=== PATIENT | male | born 1970 | race African-American/Black ===

== ENCOUNTER 2019-12-02 17:36 | Inpatient (IN) | payer OTHER ==
[2019-12-02 20:34] VITALS: BMI 30.2
--- NOTE | 2019-12-02 22:43 | HP ---
CIWA Score Nausea/Vomitin (vomiting x 2) Muscle Tremors: 4-Moderate,w/Arms Extend Anxiety: 3 Agitation: 0-Normal Activity Paroxysmal Sweats: 3 Orientation: 1-Uncertain about Date Tacttile Disturbances: 0-None Auditory Disturbances: 0-None Visual Disturbances: 0-None Headache: 3-Moderate CIWA-Ar Total Score: 16 - Admission Criteria OASAS Guidelines: Admission for Medically Managed Detox: Requires at least one of the followin. CIWA greater than 12 2. Seizures within the past 24 hours 3. Delirium tremens within the past 24 hours 4. Hallucinations within the past 24 hours 5. Acute intervention needed for co occurring medical disorder 6. Acute intervention needed for co occurring psychiatric disorder 7. Severe withdrawal that cannot be handled at a lower level of care (continued vomiting, continued diarrhea, abnormal vital signs) requiring intravenous medication and/or fluids 8. Admission ROS [facility] Chief Complaint: Alcohol withdrawal symptoms Allergies/Adverse Reactions: Allergies Allergy/AdvReac Type Severity Reaction Status Date / Time No Known Allergies Allergy Verified 12/02/19 20:22 History of Present Illness: 49 years old male with a long history of alcohol dependence is seeking admission to detox. Patient has been in previous detox and reports reports four years of sobriety while incarcerated. He has medical history of asthma and denies psychiatric history. Patient denies suicide attempt and suicidal ideation at this time. Patient reports that he is homeless and resides in [facility] in [place]. He reports blackouts from drinking, last blackout was on 11/29/2019. Exam Limitations: No Limitations - Ebola screening Have you traveled outside of the country in the last 21 days: No (N) Have you had contact with anyone from an Ebola affected area: No Do you have a fever: No - Review of Systems Constitutional: Chills, Loss of Appetite, Night Sweats, Changes in sleep EENT: reports: No Symptoms Reported Respiratory: reports: No Symptoms reported Cardiac: reports: No Symptoms Reported GI: reports: Nausea, Poor Appetite, Poor Fluid Intake, Vomiting, Abdominal cramping : reports: No Symptoms Reported Musculoskeletal: reports: Joint Pain, Muscle Pain Integumentary: reports: Dryness, Flushing Neuro: reports: Headache, Tremors Endocrine: reports: No Symptoms Reported Hematology: reports: No Symptoms Reported Psychiatric: reports: Mood/Affect Appropiate, Orientated x3, Anxious Other Systems: Reviewed and Negative Patient History - Patient Medical History Hx Anemia: No Hx Asthma: Yes (Albuterol) Hx Chronic Obstructive Pulmonary Disease (COPD): No Hx Cancer: No Hx Cardiac Disorders: No Hx Congestive Heart Failure: No Hx Hypertension: No Hx Hypercholesterolemia: No HX Cerebrovascular Accident: No Hx Seizures: No Hx Dementia: No Hx Diabetes: No Hx Gastrointestinal Disorders: No Hx Liver Disease: No Hx Genitourinary Disorders: No Hx Sexually Transmitted Disorders: No Hx Renal Disease (ESRD): No Hx Thyroid Disease: No Hx Human Immunodeficiency Virus (HIV): No (Negative 2018) Hx Hepatitis C: No Hx Depression: No Hx Suicide Attempt: No (Denies suicide attempt and suicidal ideation at this time) Hx Bipolar Disorder: No Hx Schizophrenia: No - Patient Surgical History Past Surgical History: Yes Hx Neurologic Surgery: No Hx Cataract Extraction: No Hx Cardiac Surgery: No Hx Lung Surgery: No Hx Abdominal Surgery: No Hx Appendectomy: No Hx Cholecystectomy: No Hx Genitourinary Surgery: No Hx Orthopedic Surgery: Yes (Right ring finger 1991) Anesthesia Reaction: No - PPD History Previous Implant?: Yes Documented Results: Negative w/o proof Implanted On Prior R Admission?: No PPD to be Administered?: Yes - Reproductive History Patient is a Female of Child Bearing Age (11 -55 yrs old): No (male) - Smoking Cessation Smoking history: Current every day smoker Have you smoked in the past 12 months: Yes Aproximately how many cigarettes per day: 4 Hx Chewing Tobacco Use: No Initiated information on smoking cessation: Yes 'Breaking Loose' booklet given: 12/02/19 - Substance & Tx. History Hx Alcohol Use: Yes Hx Substance Use: Yes Substance Use Type: Alcohol, Cocaine, Marijuana Hx Substance Use Treatment: Yes (Unknown) - Substances abused Alcohol Substance route: Oral Frequency: Daily Amount used: 96 OZ OF BEER/ DAY OR 4 - 24 OZ BOTTLE DAILY Age of first use: 18 Date of last use: 12/02/19 Marijuana/Hashish Substance route: Smoking Frequency: Daily Amount used: 1 BLUNT A DAY Age of first use: 18 Date of last use: 12/01/19 Cocaine Substance route: Inhalation Frequency: Daily Amount used: 1 GRAM A DAY Age of first use: 18 Date of last use: 12/01/19 Crack Substance route: Smoking Frequency: Daily Amount used: 1 GRAM A DAY Age of first use: 18 Date of last use: 12/01/19 Other Other (specify): PERCOCETS Substance route: Oral Frequency: 1-2 times per week Amount used: 10 MG Age of first use: 46 Date of last use: 11/27/19 Admission Physical Exam [facility] - Vital Signs Vital Signs: Vital Signs - 24 hr 12/02/19 20:16 Temperature 98.2 F Pulse Rate 73 Respiratory 18 Rate Blood Pressure 122/79 - Physical General Appearance: Yes: Moderate Distress, Tremorous, Sweating, Anxious HEENTM: Yes: Within Normal Limits Respiratory: Yes: Lungs Clear, Normal Breath Sounds, No Respiratory Distress Neck: Yes: Within Normal Limits Breast: Yes: Within Normal Limits Cardiology: Yes: Regular Rhythm, Regular Rate Abdominal: Yes: Normal Bowel Sounds Genitourinary: Yes: Within Normal Limits Back: Yes: Normal Inspection Musculoskeletal: Yes: Within Normal Limits Extremities: Yes: Tremors Neurological: Yes: Within Normal Limits, Alert, Normal Mood/Affect Integumentary: Yes: Warm Lymphatic: Yes: Within Normal Limits - Diagnostic (1) Alcohol dependence with withdrawal, uncomplicated Current Visit: Yes Status: Acute (2) Nicotine dependence Current Visit: Yes Status: Chronic Qualifiers: Nicotine product type: cigarettes Substance use status: uncomplicated Qualified Code(s): F17.210 - Nicotine dependence, cigarettes, uncomplicated (3) Asthma Current Visit: Yes Status: Chronic Qualifiers: Asthma severity: unspecified severity Asthma complication type: uncomplicated Cleared for Admission [facility] - Detox or Rehab [facility] Level of Care: Medically Managed Detox Regimen/Protocol: Librium Claeared for Rehab Admission: No Breathalyzer - Breathalyzer Breathalyzer: 0 Urine Drug Screen - Test Device Lot number: [id number] Expiration date: 06/29/21 - Control Is test valid?: Yes - Results Drug screen NEGATIVE: No Urine drug screen results: THC-Marijuana, TIERRA-Cocaine, BZO-Benzodiazepines Inpatient Rehab Admission - Rehab Decision to Admit Inpatient rehab admission?: No
[2019-12-02] MEDS ORDERED: BISMUTH SUBSALICYLATE 524 MG/30 ML UD PO PRN (22:58)
[2019-12-02] MEDS ORDERED: MAG HYDROX/AL HYDROX/SIMETH 30 ML UNIT-DOSE CUP PO PRN (22:58)
[2019-12-02] MEDS ORDERED: MAGNESIUM CITRATE 300 ML BOTTLE PO PRN (22:58)
[2019-12-02] MEDS ORDERED: ACETAMINOPHEN 325 MG TABLET (FP) PO PRN ×2 (22:58)
[2019-12-02] MEDS ORDERED: NICOTINE POLACRILEX 2 MG GUM BUC PRN (22:58)
[2019-12-02] MEDS ORDERED: IBUPROFEN 400 MG TABLET (FP) PO PRN (22:58)
[2019-12-02] MEDS ORDERED: MAGNESIUM HYDROX 2400MG/30ML ORAL SUSPENSION 30 ML CUP PO PRN (22:58)
[2019-12-02] MEDS ORDERED: MENTHOL/PHENOL 1 EACH UD MM PRN (22:58)
[2019-12-02] MEDS ORDERED: chlordiazePOXIDE HCL 25 MG CAPSULE PO PRN (23:03)
[2019-12-02] MEDS: METHOCARBAMOL 500 MG TABLET PO PRN (23:51)
[2019-12-02] MEDS: chlordiazePOXIDE HCL 25 MG CAPSULE PO SCH (23:51)
[2019-12-02] MEDS: MELATONIN 5 MG TABLETS PO PRN (23:59)
[2019-12-03] MEDS: chlordiazePOXIDE HCL 25 MG CAPSULE PO SCH ×4 (05:19→22:16)
[2019-12-03] MEDS: METHOCARBAMOL 500 MG TABLET PO PRN ×3 (05:19→22:16)
[2019-12-03 09:54] LABS: HEMATOCRIT 41.4 % (35.4-49); HEMOGLOBIN 13.8 GM/dL (11.7-16.9); MCH 32.9 pg (25.7-33.7); MCHC 33.3 g/dl (32.0-35.9); MEAN CELL VOLUME 99.1 fl (80-96); MEAN PLT VOLUME 8.1 fl (7.5-11.1); PLATELET COUNT 256 K/MM3 (134-434); RBC 4.17 M/mm3 (4.00-5.60); RDW 13.1 % (11.9-15.9); WHITE BLOOD COUNT 6.8 K/mm3 (4.0-10.0)
[2019-12-03 10:13] LABS: ALBUMIN 3.1 g/dl (3.4-5.0); BLOOD UREA NITROGEN 12.5 mg/dL (7-18); CALCIUM 8.2 mg/dL (8.5-10.1); CREATININE 1.1 mg/dL (0.55-1.3); TOT PROT 6.3 g/dl (6.4-8.2)
[2019-12-03 10:45] LABS: BILIRUBIN,TOTAL 0.4 mg/dL (0.2-1)
[2019-12-03] MEDS: NICOTINE 14 MG/24 HOURS TOPICAL PATCH TD SCH (11:08)
[2019-12-03] MEDS: PRENATAL VITAMINS W/ FOLIC ACID TABLET (FP) PO SCH (11:09)
--- NOTE | 2019-12-03 15:24 | PN ---
[facility] CIWA - CIWA Score Nausea/Vomitin-Mild Nausea/No Vomiting Muscle Tremors: 3 Anxiety: 2 Agitation: 1-Slight > Activity Paroxysmal Sweats: 1-Minimal Palms Moist Orientation: 0-Oriented Tacttile Disturbances: 0-None Auditory Disturbances: 0-None Visual Disturbances: 0-None Headache: 1-Very Mild CIWA-Ar Total Score: 9 [facility] Progress Note (SOAP) Subjective: pt here for alcohol detox O: Vital Signs - 24 hr 12/02/19 12/03/19 12/03/19 20:16 00:30 03:30 Temperature 98.2 F Pulse Rate 73 Respiratory 18 18 18 Rate Blood Pressure 122/79 12/03/19 12/03/19 08:53 09:59 Temperature 97.7 F 97.1 F L Pulse Rate 58 L 77 Respiratory 18 16 Rate Blood Pressure 117/70 118/76 Laboratory Tests 12/03/19 12/03/19 12/03/19 07:20 07:20 07:20 WBC 6.8 RBC 4.17 Hgb 13.8 Hct 41.4 MCV 99.1 H MCH 32.9 MCHC 33.3 RDW 13.1 Plt Count 256 MPV 8.1 Sodium 140 Potassium 4.0 Chloride 110 H Carbon Dioxide 26 Anion Gap 5 L BUN 12.5 Creatinine 1.1 Est GFR (CKD-EPI)AfAm 92.16 Est GFR (CKD-EPI)NonAf 79.52 Random Glucose 94 Calcium 8.2 L Total Bilirubin 0.4 AST 18 ALT 29 Alkaline Phosphatase 74 Total Protein 6.3 L Albumin 3.1 L RPR Titer Nonreactive a/p: AUD- continue alcohol detox protocol labs and VS WNL
[2019-12-03] MEDS: MELATONIN 5 MG TABLETS PO PRN (22:16)
[2019-12-03] MEDS: THIAMINE HCL 100 MG TABLET (FP) PO SCH (22:16)
--- NOTE | 2019-12-03 23:25 | EKG ---
Test Reason : Blood Pressure : / mmHG Vent. Rate : 070 BPM Atrial Rate : 070 BPM P-R Int : 154 ms QRS Dur : 090 ms QT Int : 414 ms P-R-T Axes : 019 054 039 degrees QTc Int : 447 ms NORMAL SINUS RHYTHM NORMAL ECG NO PREVIOUS ECGS AVAILABLE Confirmed by RICK BARRON MD ([id number]) on 12/03/2019 11:24:50 PM Referred By: Confirmed By:RICK BARRON MD
[2019-12-04] MEDS: chlordiazePOXIDE HCL 25 MG CAPSULE PO SCH ×4 (06:45→22:18)
[2019-12-04] MEDS: NICOTINE 14 MG/24 HOURS TOPICAL PATCH TD SCH (10:58)
[2019-12-04] MEDS: PRENATAL VITAMINS W/ FOLIC ACID TABLET (FP) PO SCH (10:58)
--- NOTE | 2019-12-04 18:53 | PN ---
[facility] CIWA - CIWA Score Nausea/Vomitin-Mild Nausea/No Vomiting Muscle Tremors: 2 Anxiety: 4-Mod. Anxious/Guarded Agitation: 3 Paroxysmal Sweats: 3 Orientation: 0-Oriented Tacttile Disturbances: 0-None Auditory Disturbances: 0-None Visual Disturbances: 0-None Headache: 0-None Present CIWA-Ar Total Score: 13 [facility] Progress Note (SOAP) Subjective: Tremor, chills, sweating, sees black spots, interrupted sleep Objective: 12/04/19 18:52 Last Vital Signs Temp Pulse Resp BP Pulse Ox 97.5 F L 76 18 135/82 12/04/19 17:33 12/04/19 17:33 12/04/19 17:33 12/04/19 17:33 Elevated b/p: denies htn, not on med Laboratory Tests 12/03/19 12/03/19 12/03/19 07:20 07:20 07:20 WBC 6.8 RBC 4.17 Hgb 13.8 Hct 41.4 MCV 99.1 H MCH 32.9 MCHC 33.3 RDW 13.1 Plt Count 256 MPV 8.1 Sodium 140 Potassium 4.0 Chloride 110 H Carbon Dioxide 26 Anion Gap 5 L BUN 12.5 Creatinine 1.1 Est GFR (CKD-EPI)AfAm 92.16 Est GFR (CKD-EPI)NonAf 79.52 Random Glucose 94 Calcium 8.2 L Total Bilirubin 0.4 AST 18 ALT 29 Alkaline Phosphatase 74 Total Protein 6.3 L Albumin 3.1 L RPR Titer Nonreactive Labs reviewed: Ca 8.2 (low) Assessment: 12/04/19 18:55 Withdrawal sxs Noted with elevated b/p and hypocalcemia Plan: Continue detox Encouraged PO water intake Elevated b/p: denies htn, start clonidine prn Hypocalcemia: start calcium carbonate 650mg PO bid x 3 days
[2019-12-04] MEDS ORDERED: cloNIDine HCL 0.1 MG TABLET PO PRN (18:54)
[2019-12-04] MEDS: MELATONIN 5 MG TABLETS PO PRN (22:18)
[2019-12-04] MEDS: CALCIUM CARBONATE 650 MG TABLET PO SCH (22:18)
[2019-12-04] MEDS: METHOCARBAMOL 500 MG TABLET PO PRN (22:19)
[2019-12-04] MEDS: hydrOXYzine PAMOATE 25 MG CAPSULE (FP) PO PRN (22:20)
[2019-12-04] MEDS: THIAMINE HCL 100 MG TABLET (FP) PO SCH (22:59)
[2019-12-05] MEDS ORDERED: chlordiazePOXIDE HCL 10 MG CAPSULE PO PRN
[2019-12-05] MEDS: chlordiazePOXIDE HCL 10 MG CAPSULE PO SCH ×4 (07:00→22:40)
[2019-12-05] MEDS: PRENATAL VITAMINS W/ FOLIC ACID TABLET (FP) PO SCH (10:34)
[2019-12-05] MEDS: CALCIUM CARBONATE 650 MG TABLET PO SCH ×2 (10:34→23:13)
[2019-12-05] MEDS: NICOTINE 14 MG/24 HOURS TOPICAL PATCH TD SCH (10:35)
[2019-12-05] MEDS: METHOCARBAMOL 500 MG TABLET PO PRN ×2 (10:35→22:40)
--- NOTE | 2019-12-05 12:08 | PN ---
S CIWA - CIWA Score Nausea/Vomitin-No Nausea/No Vomiting Muscle Tremors: 3 Anxiety: 2 Agitation: 2 Paroxysmal Sweats: 3 Orientation: 0-Oriented Tacttile Disturbances: 0-None Auditory Disturbances: 0-None Visual Disturbances: 0-None Headache: 0-None Present CIWA-Ar Total Score: 10 S Progress Note (SOAP) Subjective: muscle cramps sweats interrupted sleep Objective: 12/05/19 12:08 Vital Signs Temperature 98.2 F 12/05/19 09:45 Pulse Rate 73 12/05/19 09:45 Respiratory Rate 19 12/05/19 09:45 Blood Pressure 100/58 L 12/05/19 09:45 O2 Sat by Pulse Oximetry (%) Laboratory Tests 12/03/19 12/03/19 12/03/19 07:20 07:20 07:20 WBC 6.8 RBC 4.17 Hgb 13.8 Hct 41.4 MCV 99.1 H MCH 32.9 MCHC 33.3 RDW 13.1 Plt Count 256 MPV 8.1 Sodium 140 Potassium 4.0 Chloride 110 H Carbon Dioxide 26 Anion Gap 5 L BUN 12.5 Creatinine 1.1 Est GFR (CKD-EPI)AfAm 92.16 Est GFR (CKD-EPI)NonAf 79.52 Random Glucose 94 Calcium 8.2 L Total Bilirubin 0.4 AST 18 ALT 29 Alkaline Phosphatase 74 Total Protein 6.3 L Albumin 3.1 L RPR Titer Nonreactive aaox3 ambulating no acute distress Assessment: 12/05/19 12:08 withdrawals Plan: continue detox muscle relaxant prn increase fluids
[2019-12-05] MEDS: MELATONIN 5 MG TABLETS PO PRN (22:40)
[2019-12-05] MEDS: THIAMINE HCL 100 MG TABLET (FP) PO SCH (22:40)
[2019-12-06] MEDS: chlordiazePOXIDE HCL 10 MG CAPSULE PO SCH ×2 (06:09→17:15)
[2019-12-06] MEDS: METHOCARBAMOL 500 MG TABLET PO PRN ×3 (06:11→22:22)
[2019-12-06] MEDS: CALCIUM CARBONATE 650 MG TABLET PO SCH ×2 (10:16→22:19)
[2019-12-06] MEDS: PRENATAL VITAMINS W/ FOLIC ACID TABLET (FP) PO SCH (10:16)
[2019-12-06] MEDS: NICOTINE 14 MG/24 HOURS TOPICAL PATCH TD SCH (10:16)
[2019-12-06] MEDS ORDERED: LIDOCAINE 5% TOPICAL PATCH TP ONE (10:29)
--- NOTE | 2019-12-06 11:48 | PN ---
S CIWA - CIWA Score Nausea/Vomitin-No Nausea/No Vomiting Muscle Tremors: 2 Anxiety: 1-Mildly Anxious Agitation: 1-Slight > Activity Paroxysmal Sweats: No Perspiration Orientation: 0-Oriented Tacttile Disturbances: 0-None Auditory Disturbances: 0-None Visual Disturbances: 0-None Headache: 0-None Present CIWA-Ar Total Score: 4 [facility] Progress Note (SOAP) Subjective: I fractured my rib before coming here. I have some discomfort on my left side little sweats Objective: 12/06/19 11:47 Vital Signs Temperature 97.3 F L 12/06/19 09:40 Pulse Rate 77 12/06/19 09:40 Respiratory Rate 18 12/06/19 09:40 Blood Pressure 133/85 12/06/19 09:40 O2 Sat by Pulse Oximetry (%) aaox3 ambulating no acute distress Assessment: 12/06/19 11:47 mild withdrawals no bruising noted to skin Plan: lidocaine patch x one to apply to fractured area motrin prn increase fluids d/c in am
[2019-12-06] MEDS: hydrOXYzine PAMOATE 25 MG CAPSULE (FP) PO PRN (13:51)
[2019-12-06] MEDS ORDERED: LIDOCAINE PATCH REMOVAL MC SCH (22:00)
[2019-12-06] MEDS: THIAMINE HCL 100 MG TABLET (FP) PO SCH (22:20)
[2019-12-06] MEDS: MELATONIN 5 MG TABLETS PO PRN (22:20)
[2019-12-07] MEDS ORDERED: chlordiazePOXIDE HCL 10 MG CAPSULE PO ONE (05:00)
[2019-12-07 06:54] VITALS: BP 131/67; PULSE 87; TEMP 97.5
--- NOTE | 2019-12-07 08:52 | DS ---
[facility] Detox Discharge Summary Admission Date: 12/02/19 Discharge Date: 12/07/19 - History Present History: Alcohol Dependence - Physical Exam Results Vital Signs: Vital Signs Temperature 97.5 F L 12/07/19 06:54 Pulse Rate 87 12/07/19 06:54 Respiratory Rate 12/07/19 06:54 Blood Pressure 131/67 12/07/19 06:54 O2 Sat by Pulse Oximetry (%) Pertinent Admission Physical Exam Findings: Vital Signs Temperature 97.5 F L 12/07/19 06:54 Pulse Rate 87 12/07/19 06:54 Respiratory Rate 12/07/19 06:54 Blood Pressure 131/67 12/07/19 06:54 O2 Sat by Pulse Oximetry (%) Laboratory Tests 12/03/19 12/03/19 12/03/19 07:20 07:20 07:20 WBC 6.8 RBC 4.17 Hgb 13.8 Hct 41.4 MCV 99.1 H MCH 32.9 MCHC 33.3 RDW 13.1 Plt Count 256 MPV 8.1 Sodium 140 Potassium 4.0 Chloride 110 H Carbon Dioxide 26 Anion Gap 5 L BUN 12.5 Creatinine 1.1 Est GFR (CKD-EPI)AfAm 92.16 Est GFR (CKD-EPI)NonAf 79.52 Random Glucose 94 Calcium 8.2 L Total Bilirubin 0.4 AST 18 ALT 29 Alkaline Phosphatase 74 Total Protein 6.3 L Albumin 3.1 L RPR Titer Nonreactive aaox3 ambulating no acute distress - Treatment Hospital Course: Detox Protocol Followed, Detoxed Safely, Responded well, Discharged Condition Good, Rehab Referral Accepted Patient has Accepted a Rehab Referral to: referral provided; pt declined rehab - Medication Discharge Medications: Ambulatory Orders NK [No Known Home Medication] 12/02/19 - Diagnosis (1) Alcohol dependence with withdrawal, uncomplicated Current Visit: Yes Status: Chronic (2) Asthma Current Visit: Yes Status: Chronic Qualifiers: Asthma severity: unspecified severity Asthma complication type: uncomplicated (3) Nicotine dependence Current Visit: Yes Status: Chronic Qualifiers: Nicotine product type: cigarettes Substance use status: uncomplicated Qualified Code(s): F17.210 - Nicotine dependence, cigarettes, uncomplicated - AMA Did Patient Leave Against Medical Advice: No
== END 2019-12-07 09:10 | disposition home or self-care (01) | DRG 774 ==
LOC: YASAS 17:36 → Y6N 22:43
PROVIDERS: ADMIT Allergy & Immunology; ATTEND Allergy & Immunology
PROC: HZ2ZZZZ Detoxification Services for Substance Abuse Treatment (ICD-10-PCS; principal; 2019-12-02)
DX: F10.230 Alcohol dependence with withdrawal, uncomplicated (principal); F14.20 Cocaine dependence, uncomplicated; F12.20 Cannabis dependence, uncomplicated; F17.210 Nicotine dependence, cigarettes, uncomplicated; J45.909 Unspecified asthma, uncomplicated; E83.51 Hypocalcemia; R03.0 Elevated blood-pressure reading, without diagnosis of hypertension
CPT/HCPCS: 36415; 80053; 85027; 86593; 93005; 93010